=== PATIENT | male | born 1985 | race American Indian/Alaskan Native ===

== ENCOUNTER 2017-08-13 18:17 | Emergency (ER) | payer OTHER ==
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
[2017-08-13] MEDS ORDERED: MOTRIN PO ONE (23:02)
[2017-08-13 23:56] VITALS: BP 148/91
== END 2017-08-13 23:45 | disposition home or self-care (01) ==
LOC: ED 18:17
DX: S13.4XXA Sprain of ligaments of cervical spine, initial encounter (principal); V49.49XA Driver injured in collision with other motor vehicles in traffic accident, initial encounter; Y93.9 Activity, unspecified; Y92.9 Unspecified place or not applicable; Y99.9 Unspecified external cause status; F17.200 Nicotine dependence, unspecified, uncomplicated